=== PATIENT | female | born 1990 | race Caucasian/White ===

== ENCOUNTER 2016-03-18 12:46 | Emergency (ER) | payer OTHER ==
[2016-03-18 12:59] VITALS: BP 125/87
--- NOTE | 2016-03-18 13:06 | UC ---
Hand/Wrist HPI - HPI Summary HPI Summary: fell last night landing on left hand---pain in thumb bruising 1 and 5 MC - History Of Current Complaint Chief Complaint: UCUpperExtremity Stated Complaint: SORE HAND Time Seen by Provider: 03/18/16 13:05 Hx Obtained From: Patient Hx Last Menstrual Period: iud ?: No Mechanism Of Injury: Fall Onset/Duration: Sudden Onset, Lasting Days - 1, Still Present Severity Initially: Moderate Severity Currently: Moderate Pain Intensity: 7 Pain Scale Used: 0-10 Numeric Character Of Pain: Aching Aggravating Factor(s): Movement Alleviating: Nothing Associated Signs And Symptoms: Positive: Bruising Related History: Dominant Hand Right - Allergies/Home Medications Allergies/Adverse Reactions: Allergies Allergy/AdvReac Type Severity Reaction Status Date / Time Cyclobenzaprine Allergy Hives Verified 08/16/15 12:28 [From Flexeril] Ciprofloxacin AdvReac See Comment Verified 08/16/15 14:30 shrimp Allergy Vomiting Uncoded 03/18/16 12:55 PMH/Surg Hx/FS Hx/Imm Hx Previously Healthy: Yes Endocrine History Of: Denies: Hyperthyroidism, Hypothyroidism Cardiovascular History Of: Denies: Cardiac Disorders - Surgical History Surgical History: Yes Surgery Procedure, Year, and Place: LEFT FOOT 2 SCREWS BUNION SURGERY 2006. [facility] 06/25 - Family History Known Family History: Positive: None Family History: no known cardio vascular issues in family lineage - Social History Occupation: Employed Full-time - [employer] Lives: With Family Alcohol Use: Weekly Substance Use Type: Marijuana Smoking Status (MU): Current Every Day Smoker Amount Used/How Often: 1/2 PPD Have You Smoked in the Last Year: Yes Cessation Counseling: Counseled 3+Min - 10 Min Review of Systems Constitutional: Negative Skin: Bruising - left had---lateral and medial side Eyes: Negative ENT: Negative Respiratory: Negative Cardiovascular: Negative Gastrointestinal: Negative Genitourinary: Negative Motor: Negative Neurovascular: Negative Musculoskeletal: Arthralgia Neurological: Negative Psychological: Negative All Other Systems Reviewed And Are Negative: Yes Physical Exam Triage Information Reviewed: Yes Appearance: Well-Appearing, No Pain Distress, Well-Nourished Vital Signs: Initial Vital Signs Temp 98.3 F 03/18/16 12:55 Pulse 111 03/18/16 12:55 Resp 16 01/05/17 12:55 BP 125/87 03/18/16 12:55 Pulse Ox 100 03/18/16 12:55 Vital Signs Reviewed: Yes Eye Exam: Normal Eyes: Positive: Conjunctiva Clear ENT Exam: Normal ENT: Positive: Normal ENT inspection, Hearing grossly normal. Negative: Nasal congestion, Nasal drainage, Tonsillar exudate, Trismus, Muffled/hoarse voice Neck exam: Normal Neck: Positive: Supple, Nontender Respiratory Exam: Normal Respiratory: Positive: Chest non-tender, Lungs clear, Normal breath sounds, No respiratory distress, No accessory muscle use Cardiovascular Exam: Normal Cardiovascular: Positive: RRR, No Murmur, Pulses Normal, Brisk Capillary Refill Musculoskeletal Exam: Normal Musculoskeletal: Positive: Edema @ - medial and laterl left hand Neurological Exam: Normal Neurological: Positive: Alert, Muscle Tone Normal Psychological Exam: Normal Skin Exam: Normal Diagnostics - Laboratory Diagnostic Studies Completed/Ordered: x-ray negative Hand/Wrist Course/Dx - Course Course Of Treatment: дмитрий , rest, ice, follow with ortho prn - Differential Dx/Diagnosis Differential Diagnosis/HQI/PQRI: Contusion, Fracture, Sprain, Strain Provider Diagnoses: contusion left hand Discharge - Discharge Plan Condition: Stable Disposition: HOME Prescriptions: HYDROcodone/ACETAMIN 5-325 MG* [[place] 5-325 TAB*] 1 tab PO Q6H PRN #8 tab MDD 4 PRN Reason: Pain Patient Education Materials: Contusion in Adults (ED), RICE Therapy (ED) Referrals: No Primary Care Phys,NOPCP [Primary Care Provider] - Mary Bills MD [Medical Doctor] - 5 Days
[2016-03-18] MEDS ORDERED: Ibuprofen TAB* 600 MG PO ONE (13:09)
--- NOTE | 2016-03-18 13:34 | RAD ---
INDICATION: Left hand injury. TECHNIQUE: 4 views of the left hand were obtained. FINDINGS: The bones are in normal alignment. No fracture is seen. Joint spaces appear maintained. IMPRESSION: NO EVIDENCE FOR FRACTURE.
== END 2016-03-18 13:54 | disposition home or self-care (01) ==
LOC: UCEAST 12:46
DX: S60.222A Contusion of left hand, initial encounter (principal); W19.XXXA Unspecified fall, initial encounter; Y93.9 Activity, unspecified; Y92.9 Unspecified place or not applicable; Z88.1 Allergy status to other antibiotic agents; Z88.2 Allergy status to sulfonamides; F17.210 Nicotine dependence, cigarettes, uncomplicated
CPT/HCPCS: 99212; A9270-GY; G0463

== ENCOUNTER 2016-05-27 12:28 | Emergency (ER) | payer OTHER ==
[2016-05-27 12:47] VITALS: BP 120/85
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
== END 2016-05-27 14:14 | disposition home or self-care (01) ==
LOC: UCEAST 12:28
DX: S39.012A Strain of muscle, fascia and tendon of lower back, initial encounter (principal); X50.0XXA Overexertion from strenuous movement or load, initial encounter; X50.9XXA Other and unspecified overexertion or strenuous movements or postures, initial encounter; Y93.89 Activity, other specified; Y92.79 Other farm location as the place of occurrence of the external cause; Y99.0 Civilian activity done for income or pay; S09.90XA Unspecified injury of head, initial encounter; W55.22XA Struck by cow, initial encounter; Y93.9 Activity, unspecified; M25.472 Effusion, left ankle; Z32.02 Encounter for pregnancy test, result negative; Z88.1 Allergy status to other antibiotic agents; Z88.8 Allergy status to other drugs, medicaments and biological substances; F17.210 Nicotine dependence, cigarettes, uncomplicated
CPT/HCPCS: 81003; 84702; 99212; G0463

== ENCOUNTER 2016-11-22 16:02 | Emergency (ER) | payer OTHER ==
[2016-11-22 16:07] VITALS: BP 123/86
--- NOTE | 2016-11-22 16:33 | UC ---
Complaint Female HPI - HPI Summary HPI Summary: 26 YEAR OLD FEMALE PRESENTS WITH COMPLAINS OF PAINFUL AREA ON RIGHT LOWER BREAST. - History Of Current Complaint Chief Complaint: UCGeneralIllness Stated Complaint: PERSONAL Time Seen by Provider: 11/22/16 16:27 Hx Obtained From: Patient Hx Last Menstrual Period: one month ago Onset/Duration: Sudden Onset Timing: Constant Severity Initially: Moderate Severity Currently: Moderate Pain Scale Used: 0-10 Numeric - 7 Character: Sharp - Allergies/Home Medications Allergies/Adverse Reactions: Allergies Allergy/AdvReac Type Severity Reaction Status Date / Time Cyclobenzaprine Allergy Hives Verified 11/22/16 16:08 [From Flexeril] Ciprofloxacin AdvReac See Comment Verified 11/22/16 16:08 shrimp Allergy Vomiting Uncoded 11/22/16 16:08 Home Medications: Home Medications Ibuprofen TAB* [Motrin TAB* 600 MG] 1 cap PO ONCE 11/22/16 [History Confirmed ] PMH/Surg Hx/FS Hx/Imm Hx Previously Healthy: Yes - Surgical History Surgical History: Yes Surgery Procedure, Year, and Place: LEFT FOOT 2 SCREWS BUNION SURGERY 2006. [facility] 06/25 - Family History Known Family History: Positive: None, Cardiac Disease, Hypertension, Other - Yes - Stroke. Yes - Cancer Family History: no known cardio vascular issues in family lineage - Social History Alcohol Use: Occasionally Substance Use Type: Marijuana Smoking Status (MU): Current Every Day Smoker Amount Used/How Often: 1/2 PPD Have You Smoked in the Last Year: Yes Review of Systems Constitutional: Negative Skin: Other - PAINFUL LESION ON RIGHT LOWER BREAST Eyes: Negative ENT: Negative Respiratory: Negative Cardiovascular: Negative Gastrointestinal: Negative Genitourinary: Negative Motor: Negative Neurovascular: Negative Musculoskeletal: Negative Neurological: Negative Psychological: Negative All Other Systems Reviewed And Are Negative: Yes Physical Exam Triage Information Reviewed: Yes Appearance: Well-Appearing Vital Signs: Initial Vital Signs Temp 37.0 C 11/22/16 16:04 Pulse 56 11/22/16 16:04 Resp 12 11/22/16 16:04 BP 123/86 11/22/16 16:04 Pulse Ox 98 11/22/16 16:04 Eye Exam: Normal ENT Exam: Normal Dental Exam: Normal Neck exam: Normal Neck: Positive: 1 Respiratory Exam: Normal Cardiovascular Exam: Normal Abdominal Exam: Normal Musculoskeletal Exam: Normal Neurological Exam: Normal Psychological Exam: Normal Skin: Positive: Other - PAINFUL/RED LESION RIGHT LOWER BREAST Complaint Female Dx - Differential Dx/Diagnosis Provider Diagnoses: PAINFUL LESION RIGHT LOWER BREAST. MASTITIS Discharge - Discharge Plan Condition: Stable Disposition: HOME Prescriptions: Cephalexin CAP* [Keflex 500 CAP*] 500 mg PO TID #30 cap Ibuprofen TAB* [Motrin TAB* 800 MG] 800 mg PO Q8H PRN #30 tab PRN Reason: Pain Patient Education Materials: Mastitis (ED) Referrals: No Primary Care Phys,NOPCP [Primary Care Provider] - Additional Instructions: FOLLOW UP MAMMOGRAM
== END 2016-11-22 16:45 | disposition home or self-care (01) ==
LOC: UCEAST 16:02
DX: N61.0 Mastitis without abscess (principal); F17.210 Nicotine dependence, cigarettes, uncomplicated
CPT/HCPCS: 99212; G0463

== ENCOUNTER 2017-04-25 12:31 | Day surgery (SDC) | payer OTHER ==
[~2017-04-25 12:31] MED LIST: Acetaminophen TAB* 325 MG PO PRN; Buffered Lidocaine 0.9% SYRIN* 5 ML/SYR SYRINGE INTRADERM ONE; DiMENhydriNATE IV* 50 MG/ML VIAL IV PUSH PRN; Famotidine IV* 10 MG/ML 2 ML (20 mg) IV ONE; Ketorolac INJ* 30 MG/ML 1 ML VIAL ONE; Lidocaine 2% PF * 5 ML VIAL ONE; Midazolam* 1 MG/ML 2 ML VIAL (2 MG) ONE; Naloxone* 0.4 MG/ML 1 ML VIAL IV PRN; Ondansetron INJ* 2 MG/ML VIAL ONE; Propofol* 10 MG/ML 20 ML BTL IV PUSH ONE; fentaNYL* 50 MCG/ML 2 ML VIAL (100 MCG VIAL) ONE
[2017-04-25] MEDS ORDERED: Famotidine IV* 10 MG/ML 2 ML (20 mg) ONE (12:50)
[2017-04-25] MEDS ORDERED: Buffered Lidocaine 0.9% SYRIN* 5 ML/SYR SYRINGE ONE (12:51)
[2017-04-25] MEDS ORDERED: Bupivacaine 0.25% SDV* 30 ML ONE (13:02)
[2017-04-25] MEDS ORDERED: Midazolam* 1 MG/ML 2 ML VIAL (2 MG) ONE (13:20)
[2017-04-25] MEDS ORDERED: HYDROcodone/ACETAMIN 5-325 MG* 1 TAB ONE (14:53)
[2017-04-25 15:30] VITALS: BP 109/56
--- NOTE | 2017-04-30 14:09 | OP ---
DATE OF OPERATION: 04/25/17 - [facility] DATE OF : 89 SURGEON: Miguelangel Crow MD TECHNICAL TRAINING INSTRUCTOR: YANDY Mejia ANESTHESIOLOGIST: Sheri Ureña MD ANESTHESIA: Local MAC PRE-OP DIAGNOSES: 1. Right small trigger finger. 2. Right small finger flexor tenosynovitis. POST-OP DIAGNOSES: 1. Right small trigger finger. 2. Right small finger flexor tenosynovitis. OPERATIVE PROCEDURE: 1. Right small trigger finger release with release of A1 marilu. 2. Right small finger flexor tenosynovectomy in the hand and palm. INDICATIONS: Karly has been seen by me multiple times in the office. We have injected the finger. She continues to have symptoms. We talked about doing the tenosynovectomy, and trigger finger release. She wanted to proceed. ESTIMATED BLOOD LOSS: 2 mL COMPLICATIONS: None. FINDINGS: Extensor flexor tenosynovitis extending well into the palm requiring much larger incision. DESCRIPTION OF PROCEDURE: Karly was seen in the preoperative holding area. The correct side, site and procedure were identified. We came back to the operating room, and the arm was prepped and draped in the usual fashion. A time -out was performed. I began by making a Dax incision over the A1 marilu extending down to the mid palm. The dissection was carried down and full thickness flaps raised off the flexor tendon sheath. The A1 marilu was visualized. The tendon sheath was visualized. The digital nerves were protected. I made a longitudinal incision to the A1 marilu, this was released. There was a dense amount of flexor tenosynovitis surrounding the tendons. This was excised and started to taper off above the A2 marilu area. I came down to the mid palm and excised all of this. This was sent off as a specimen to the pathologist. She also had a little nodular tenosynovitis on the tendon sheath and I had excised this and sent this as a specimen as well. Once everything was nice and clean, she was waking up, had her flex and extend her fingers multiple times, things were looking good, so we irrigated out the wound. The skin was closed with 4-0 nylon suture. Wound was dressed with Xeroform, 4x4s, sterile Webril, and an Narayan wrap. She was taken to the recovery room in stable condition. [id number]/[facility] #: [id number] [facility]
== END 2017-04-25 15:15 | disposition home or self-care (01) ==
LOC: OR 12:31
PROVIDERS: ATTEND Orthopaedic Surgery Hand Surgery
DX: M65.351 Trigger finger, right little finger (principal); M65.841 Other synovitis and tenosynovitis, right hand; J45.909 Unspecified asthma, uncomplicated; F17.210 Nicotine dependence, cigarettes, uncomplicated
CPT/HCPCS: 81025; 88304; J1885; J2250; J2405; J2704; J3010

== ENCOUNTER 2018-08-10 06:54 | Day surgery (SDC) | payer OTHER ==
[~2018-08-10 06:54] MED LIST changes: -Acetaminophen TAB* 325 MG PO PRN; -Buffered Lidocaine 0.9% SYRIN* 5 ML/SYR SYRINGE INTRADERM ONE; +Buffered Lidocaine 1% SYRIN* 1 ML/SYRINGE INTRADERM ONE; +Dexamethasone IV* 4 MG/ML 1 ML (4 MG) IV SLOW PU ONE; -DiMENhydriNATE IV* 50 MG/ML VIAL IV PUSH PRN; -Famotidine IV* 10 MG/ML 2 ML (20 mg) IV ONE; -Ketorolac INJ* 30 MG/ML 1 ML VIAL ONE; +Lactated Ringers 1000 ML Bag* 1,000 ML IV SCH; -Lidocaine 2% PF * 5 ML VIAL ONE; -Midazolam* 1 MG/ML 2 ML VIAL (2 MG) ONE; -Naloxone* 0.4 MG/ML 1 ML VIAL IV PRN; -Ondansetron INJ* 2 MG/ML VIAL ONE; -Propofol* 10 MG/ML 20 ML BTL IV PUSH ONE; +Sodium Citrate/Citric Acid* 15 ML UDC PO ONE; -fentaNYL* 50 MCG/ML 2 ML VIAL (100 MCG VIAL) ONE
[2018-08-10] MEDS ORDERED: Sodium Citrate/Citric Acid* 15 ML UDC ONE (07:13)
[2018-08-10] MEDS ORDERED: Dexamethasone IV* 4 MG/ML 1 ML (4 MG) ONE (07:13)
[2018-08-10] MEDS ORDERED: Naloxone* 0.4 MG/ML 1 ML VIAL IV PRN (07:52)
[2018-08-10] MEDS ORDERED: DiMENhydriNATE IV* 50 MG/ML VIAL IV PUSH PRN (07:52)
[2018-08-10] MEDS ORDERED: fentaNYL* 50 MCG/ML 2 ML VIAL (100 MCG VIAL) IV PRN (07:52)
[2018-08-10] MEDS ORDERED: Buffered Lidocaine 1% SYRIN* 1 ML/SYRINGE INTRADERM ONE (07:57)
[2018-08-10] MEDS ORDERED: fentaNYL* 50 MCG/ML 2 ML VIAL (100 MCG VIAL) ONE (08:20)
[2018-08-10] MEDS ORDERED: Midazolam* 1 MG/ML 2 ML VIAL (2 MG) ONE (08:20)
[2018-08-10] MEDS ORDERED: Bupivacaine 0.25% SDV PF* 10 ML VIAL INJ ONE (08:28)
[2018-08-10] MEDS ORDERED: Propofol* 10 MG/ML 20 ML BTL ONE (09:08)
[2018-08-10] MEDS ORDERED: Lidocaine 2% PF * 5 ML VIAL ONE (09:08)
[2018-08-10 09:35] VITALS: BP 113/69
--- NOTE | 2018-08-10 09:49 | OP ---
OPERATIVE REPORT: DATE OF OPERATION: 08/10/18 - [facility] DATE OF : 89 SURGEON: Miguelangel Crow MD INTERNATIONAL PROJECT MANAGER: YANDY Mejia ANESTHESIOLOGIST: Dr. Mccarthy. ANESTHESIA: Local MAC. PRE-OP DIAGNOSES: 1. Left de Quervain's disease. 2. Left first dorsal compartment tendon sheath mass. POST-OP DIAGNOSES: 1. Left de Quervain's disease. 2. Left first dorsal compartment tendon sheath mass. PROCEDURE PERFORMED: 1. Excision of left first dorsal compartment tendon sheath mass. 2. Left de Quervain's release. INDICATIONS: Karly has the aforementioned conditions. We have done steroid injections, its come back. We talked about risks and benefits. She wanted to proceed. ESTIMATED BLOOD LOSS: 2 mL. COMPLICATIONS: None. FINDINGS: See above and below. DESCRIPTION OF PROCEDURE: Karly was seen in the preoperative holding area. The correct side, site, and procedure were identified. We came back to the operating room, the arm was prepped and draped in the usual fashion and timeout was performed. The arm was exsanguinated with the Esmarch and the tourniquet was inflated to 200 mmHg. I made a 1 to 2 cm transverse incision just proximal to the radial styloid. Dissection was carried down and full-thickness flaps were bluntly raised off of the first dorsal compartment tendon sheath. Vieira retractors were placed and the radial sensory nerve was retracted dorsally. The nodule that was coming off the tendon sheath was readily apparent. This was ellipsed out and excised and handed off as a specimen. After I had removed the nodule, I went ahead and took my 15 blade and released the first dorsal compartment tendon sheath off of the dorsal aspect. There was a septum and an accessory compartment. The septum was excised in its entirety. Once the tendons were completely released proximally and distally, we irrigated out the wound. The skin was closed with 4-0 Monocryl and the Steri- Strips. The wound was dressed with soft dressings and she was taken to the recovery room in stable condition. [id number]/[facility] #: [id number] [facility]
== END 2018-08-10 09:48 | disposition home or self-care (01) ==
LOC: OREAST 06:54 → MERGE 11:30
PROVIDERS: ATTEND Orthopaedic Surgery Hand Surgery
DX: M65.4 Radial styloid tenosynovitis [de Quervain] (principal); M67.432 Ganglion, left wrist; J45.909 Unspecified asthma, uncomplicated; Z72.0 Tobacco use; F41.8 Other specified anxiety disorders; M25.521 Pain in right elbow
CPT/HCPCS: 81025; 88304; A9270-GY; J1100; J2250; J2704; J3010; J3490

== ENCOUNTER 2018-09-02 03:46 | Emergency (ER) | payer SELFPAY ==
[2018-09-02 03:50] VITALS: BP 153/102
[2018-09-02] MEDS ORDERED: Bupivacaine 0.5% W/EPI SDV* 10 ML VIAL INJ ONE (04:03)
[2018-09-02] MEDS ORDERED: Lidocaine 2% EPI 1:200000 MPF* 10 ML VIAL INJ ONE (04:03)
[2018-09-02] MEDS ORDERED: Lidocaine 2% EPI 1:200000 MPF*10-20 ML VIAL ONE (04:06)
[2018-09-02] MEDS ORDERED: Bupivacaine 0.5% W/EPI SDV* 30 ML VIAL ONE (04:06)
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
[2018-09-02] MEDS ORDERED: Lidocaine 2% EPI 1:200000 MPF*10-20 ML VIAL INJ ONE (04:33)
[2018-09-02] MEDS ORDERED: Bupivacaine 0.5% W/EPI SDV* 30 ML VIAL INJ ONE (04:33)
--- OUTSIDE RECORDS SUMMARY | 2018-09-02 04:41 | XMS REPORT | Continuity of Care Document ---
:1990 External Reference #:[id number] Author Name Wai Amaral Care Team Providers Name Role Phone Maureen Cobos MD Primary Care Physician Unavailable Payers Date Identification Numbers Payment Provider Subscriber Expires: 2017 Policy Number: [id number] [employer] Karly Bellamy PayID: [id number] [address] [address] [place] [address] Effective: 2017 Policy Number: [id number] [employer] Karly Bellamy Expires: 2017 PayID: [id number] [address] [address] [place] [address] Expires: 2017 Policy Number: [id number] [employer] Karly Bellamy PayID: [id number] [address] [address] [place] [address] Problems Active Problems Provider Date Other specific joint derangements of left wrist, Miguelangel Crow MD Onset: not elsewhere classified Tenosynovitis of hand Miguelangel Crow MD Onset: 04/25/2017 Acquired trigger finger Miguelangel Crow MD Onset: 04/25/2017 Family History Date Family Member(s) Observation Comments General Heart Disease maternal & paternal grandfather General Stroke maternal grandmother General Cancer paternal & maternal aunt, maternal grandmother General Blood Disorder Clotting & legs amputated (paternal grandfather) Social History Type Date Description Comments Sex Unknown Lives With Mother And Father Occupation [employer] ETOH Use Occasionally consumes alcohol Tobacco Use Start: Unknown Patient is a current smoker, 2 pks/wk smokes every day Recreational Drug Use Denies Drug Use Smoking Status Reviewed: 08/25/18 Patient is a current smoker, 2 pks/wk smokes every day Exercise Type/Frequency Exercises sporadically Allergies, Adverse Reactions, Alerts Active Allergies Reaction Severity Comments Date Shellfish-derived Products just shrimp 03/30/2013 Flexeril hives 12/10/2016 Adhesive Tape rash 04/27/2017 Cipro Nausea and Vomiting 04/27/2017 Medications Active Medications SIG Qnty Indications Ordering Provider Date Tramadol HCL 1-2 tablets by 30tathelma rCow, 08/10/2018 50mg mouth every 6 MD Tablets hours as needed pain Ibuprofen every 6 hours as Unknown 600mg needed Xanax one by mouth up Unknown 0.25mg Tablets to three times daily as needed for anxiety Tylenol 2 tabs by mouth Unknown 325mg Tablets every 4 hours as needed History Medications Hydrocodone-Acetaminophen 1 or 2 tabs by 30tathelma Means 02/23/2018 - 5-325mg Tablets mouth every 6-8 MD Tristin 03/14/2018 hours as needed for pain [place] 1 by mouth every 15tabs Miguelangel 04/25/2017 - 5-325mg Tablets 4 to 6 hours as MD Tristin 05/02/2017 needed (please discontinue tramadol) Tramadol HCL 1-2 tablets by 30aisha Means 04/24/2017 - 50mg Tablets mouth every 6 MD Tristin 04/25/2017 hours as needed pain Hydrocodone-Acetaminophen Unknown - 12/09/2016 Azithromycin 2 tabs by mouth Unknown - 250mg Tablets on day 1; 1 tab 03/14/2018 by mouth every day on days 2-5 Medications Administered in Office Medication SIG Qnty Indications Ordering Provider Date Celestone 3 mg and 3mg Miguelangel Crow MD 07/11/2018 Injection Celestone 3 mg and 3mg Miguelangel Crow MD 03/24/2018 Injection Celestone 3 mg and 3mg Miguelangel Crow MD 10/19/2017 Injection Celestone 3 mg and 3mg Miguelangel Crow MD 08/05/2017 Injection Celestone 3 mg and 3mg Mgiuelangel Crow MD 06/03/2017 Injection Celestone 3 mg and 3mg Miguelangel Crow MD 02/18/2017 Injection Celestone 3 mg and 3mg Miguelangel Crow MD 12/10/2016 Injection Vital Signs Date Vital Result Comment 08/25/2018 2:51pm Height 66 inches 5'6" Weight 180.00 lb Heart Rate 80 /min BP Systolic Sitting 124 mmHg BP Diastolic Sitting 82 mmHg Body Temperature 98.4 F Pain Level 1 cramping BMI (Body Mass Index) 29.0 kg/m2 07/11/2018 10:18am Height 66 inches 5'6" BP Systolic 128 mmHg BP Diastolic 80 mmHg Respiratory Rate 15 /min Body Temperature 97.7 F Pain Level 4 05/09/2018 1:55pm Height 66 inches 5'6" Heart Rate 109 /min BP Systolic 112 mmHg BP Diastolic 80 mmHg Respiratory Rate 18 /min Body Temperature 98.0 F Pain Level 3 04/07/2018 1:45pm Height 66 inches 5'6" Weight 180.00 lb BP Systolic Sitting 112 mmHg BP Diastolic Sitting 70 mmHg Respiratory Rate 12 /min Pain Level 3 BMI (Body Mass Index) 29.0 kg/m2 03/24/2018 3:45pm Height 66 inches 5'6" Weight 175.00 lb BP Systolic Sitting 126 mmHg BP Diastolic Sitting 82 mmHg Respiratory Rate 16 /min Pain Level 10 BMI (Body Mass Index) 28.2 kg/m2 03/15/2018 10:21am Height 66 inches 5'6" Weight 175.00 lb BP Systolic 115 mmHg BP Diastolic 68 mmHg Respiratory Rate 17 /min Pain Level 7 BMI (Body Mass Index) 28.2 kg/m2 03/01/2018 11:35am Height 66 inches 5'6" Heart Rate 100 /min BP Systolic 118 mmHg BP Diastolic 78 mmHg Body Temperature 98.6 F Pain Level 6 02/01/2018 9:44am Height 66 inches 5'6" Weight 182.75 lb Heart Rate 100 /min BP Systolic Sitting 110 mmHg BP Diastolic Sitting 70 mmHg Body Temperature 98.6 F Pain Level 5 O2 % BldC Oximetry 98 % BMI (Body Mass Index) 29.5 kg/m2 01/04/2018 11:03am Height 66 inches 5'6" Weight 172.00 lb Heart Rate 89 /min BP Systolic 132 mmHg BP Diastolic 84 mmHg Body Temperature 97.4 F BMI (Body Mass Index) 27.8 kg/m2 12/13/2017 9:48am Height 66 inches 5'6" Heart Rate 78 /min Respiratory Rate 18 /min Pain Level 4 11/29/2017 11:42am Height 66 inches 5'6" Heart Rate 96 /min Respiratory Rate 15 /min Body Temperature 98.0 F Pain Level 5 10/19/2017 11:51am Height 66 inches 5'6" Weight 165.00 lb Heart Rate 73 /min BP Systolic 126 mmHg BP Diastolic 75 mmHg Body Temperature 97.0 F BMI (Body Mass Index) 26.6 kg/m2 09/16/2017 11:44am Height 66 inches 5'6" BP Systolic 118 mmHg BP Diastolic 68 mmHg Respiratory Rate 16 /min Pain Level 5 08/05/2017 11:28am Height 66 inches 5'6" Weight 165.00 lb Heart Rate 80 /min Respiratory Rate 16 /min Body Temperature 97.4 F Pain Level 6 BMI (Body Mass Index) 26.6 kg/m2 07/06/2017 12:01pm Height 66 inches 5'6" Heart Rate 103 /min BP Systolic 122 mmHg BP Diastolic 63 mmHg Respiratory Rate 16 /min Pain Level 3 06/03/2017 11:18am Height 66 inches 5'6" Heart Rate 98 /min BP Systolic 128 mmHg BP Diastolic 70 mmHg Respiratory Rate 16 /min Body Temperature 98.5 F Pain Level 2 05/09/2017 11:17am Height 66 inches 5'6" Weight 164.00 lb Heart Rate 120 /min BP Systolic Sitting 116 mmHg BP Diastolic Sitting 64 mmHg Respiratory Rate 18 /min Pain Level 5 bilateral breasts BMI (Body Mass Index) 26.5 kg/m2 05/03/2017 11:18am Height 66 inches 5'6" Weight 164.00 lb BP Systolic 120 mmHg BP Diastolic 72 mmHg Respiratory Rate 16 /min Body Temperature 97.7 F Pain Level 6 BMI (Body Mass Index) 26.5 kg/m2 04/27/2017 9:52am Height 66 inches 5'6" Weight 164.00 lb Heart Rate 116 /min BP Systolic Sitting 118 mmHg BP Diastolic Sitting 80 mmHg Respiratory Rate 18 /min Body Temperature 97.9 F BMI (Body Mass Index) 26.5 kg/m2 04/01/2017 2:29pm Height 65 inches 5'5" Heart Rate 70 /min Respiratory Rate 20 /min Body Temperature 98.8 F Pain Level 4 02/18/2017 9:08am Height 65 inches 5'5" Weight 153.00 lb Heart Rate 72 /min Respiratory Rate 14 /min Body Temperature 98.3 F Pain Level 8 BMI (Body Mass Index) 25.5 kg/m2 12/10/2016 1:59pm Height 65 inches 5'5" Weight 153.00 lb Heart Rate 68 /min Respiratory Rate 16 /min Body Temperature 98.1 F BMI (Body Mass Index) 25.5 kg/m2 03/26/2016 2:24pm Height 66 inches 5'6" Weight 150.00 lb Respiratory Rate 16 /min Pain Level 4 BMI (Body Mass Index) 24.2 kg/m2 06/19/2013 1:46pm Height 66 inches 5'6" Weight 150.00 lb Heart Rate 87 /min BP Systolic 117 mmHg BP Diastolic 73 mmHg BMI (Body Mass Index) 24.2 kg/m2 05/17/2013 3:00pm Height 66 inches 5'6" Weight 150.00 lb Heart Rate 105 /min BP Systolic 131 mmHg BP Diastolic 92 mmHg BMI (Body Mass Index) 24.2 kg/m2 04/18/2013 1:52pm Height 66 inches 5'6" Weight 145.00 lb Heart Rate 80 /min BMI (Body Mass Index) 23.4 kg/m2 03/30/2013 2:13pm Height 66 inches 5'6" Weight 145.00 lb Heart Rate 88 /min BP Systolic 120 mmHg BP Diastolic 73 mmHg BMI (Body Mass Index) 23.4 kg/m2 Results Test Date Facility Test Result H/L Range Note Laboratory test [facility] Surgical SEE RESULT 1 , 2 finding [address] [place] [address] [phone] Laboratory test [facility] SEE RESULT 3 , 4 finding [address] [place] [address] [phone] Laboratory test [facility] SEE RESULT 5 finding [address] [place] [address] [phone] Laboratory test [facility] D Dimer 340 ng/mL High Less Than 6 finding [address] Quantitative [address] [place] [address] [phone] 1 [id number] 2 SEE RESULT BELOW Name: KARLY BELLAMY : [address]: Miguelangel Crow MD Acct: [id number] Unit: [id number] AGE: 28 Location: [facility] Re08/10/18 SEX: F Status: DEP SDC SPEC: [id number] TEDDY: 08/10/18-0856 [facility] DR: Miguelangel Crow MD REQ: [id number] RECD: 08/10/18 STATUS: SOUT _ ORDERED: LEVEL 3 COMMENTS: [id number] FINAL DIAGNOSIS First dorsal compartment sheath left wrist, excision: -- Ganglion cyst. PRE-OPERATIVE DIAGNOSIS Left wrist deQuervain???s tenosynovitis and mass first dorsal compartment sheath GROSS DESCRIPTION The specimen is received in formalin labeled, Mass First Dorsal Compartment Sheath Left Wrist, and consists of a 0.4 x 0.3 x 0.2 cm painting white ovoid rubbery fibrous tissue fragment which is submitted entirely in one cassette. Signed by and Reported on: Aminah Britt MD 08/11/18 1617 END OF REPORT DEPARTMENT OF PATHOLOGY, [address] [place] [address] Tommy Khan M.D. Director [facility] # [id number] 3 [id number] 4 SEE RESULT BELOW Name: KARLY BELLAMY : [address]: Miguelangel Crow MD Acct: [id number] Unit: [id number] AGE: 28 Location: [facility] Re02/23/18 SEX: F Status: GENA GALVAN SPEC: [id number] TEDDY: 02/23/18-160 [facility] DR: Miguelangel Crow MD REQ: [id number] RECD: 02/24/18 STATUS: SHARAN _ HORACE: Thanh, LEVEL 3 COMMENTS: [id number] FINAL DIAGNOSIS Pisiform, left wrist, excision: -- Benign bone and cartilage with degenerative change. PRE-OPERATIVE DIAGNOSIS Left wrist pain, ulnar sided. GROSS DESCRIPTION The specimen is received in formalin labeled, Left Wrist Pisiform, and consists of two polk-white irregular focally nodular bone fragments aggregating 1.7 x 1.4 x 0.8 cm. Maintenance Machine Repairer sections, one cassette following decalcification. Signed by and Reported on: Aminah Britt MD 02/28/18 1605 END OF REPORT DEPARTMENT OF PATHOLOGY, [address] [place] [address] Tommy Khan M.D. Director [facility] # [id number] 5 SEE RESULT BELOW Name: KARLY BURTON : [address]: Miguelangel Crow MD Acct: [id number] Unit: [id number] AGE: 27 Location: OR Re04/25/17 SEX: F Status: GENA GALVAN SPEC: [id number] TEDDY: 04/25/17-9095 [facility] DR: Miguelangel Crow MD REQ: [id number] RECD: 04/25/17 STATUS: SOUT _ ORDERED: LEVEL 3/2 FINAL DIAGNOSIS 1. Right small finger tendon sheath mass, excision: -- Nodular tenosynovitis. 2. Right small finger flexor tenosynovium, resection: -- Hyperplastic synovial tissue with neovascularization, fibrosis and extensive myxoid degeneration. Focal chondroid metaplasia noted. PRE-OPERATIVE DIAGNOSIS Trigger finger right little finger GROSS DESCRIPTION 1. The specimen is received in formalin labeled, Right Small Finger Tendon Sheath Mass, and consists of a 0.4 x 0.3 x 0.2 cm polk-white irregular rubbery fibrous tissue fragment which is submitted entirely in one cassette. 2. The specimen is received in formalin labeled, Right Small Finger Flexor Tenosynovitis, and consists of two polk-white irregular rubbery fibrous tissue fragments aggregating 1.5 x 1.1 x 0.3 cm which are submitted entirely in one cassette. Signed (signature on file) Tommy Khan MD 1119 END OF REPORT * ML=Testing performed at Main Lab DEPARTMENT OF PATHOLOGY, [address] [place] [address] Tommy Khan M.D. Director [facility] # [id number] [address] DAVIS by [id number] at 1237 on 11/09/12. Results read back accurately. Please note: The following may produce a false positive D Dimer test: - Rheumatoid factor greater than 60 IU/ml - Plasma hemoglobin greater than 0.05 gm/dl - Bilirubin greater than 50 mg/dl - Lipids greater than 1000 mg/dl - FDP greater than 20 ug/ml Procedures Date Code Description Status 08/10/2018 55678 Excision Tendon Sheath Ganglion /Or Joint Capsule Hand Or Completed Finger 08/10/2018 74652 Excision Tendon Sheath Ganglion /Or Joint Capsule Hand Or Completed Finger 08/10/2018 24930 Dequervains-Tendon Sheath Incision/Extensor Sheath,Wrist Completed 08/10/2018 34565 Dequervains-Tendon Sheath Incision/Extensor Sheath,Wrist Completed 07/11/2018 86700 Inject/Drain Joint/Bursa Intermediate W/O US Completed 04/07/2018 78588 Long Arm Splint Application Completed 03/24/2018 93261 Long Arm Cast Application Completed 03/24/2018 29136 Inject Tendon Sheath Or Ligament Aponeurosis Eg Plantar Completed Fascia 03/15/2018 70577 Long Arm Splint Application Completed 03/01/2018 17226 Long Arm Cast Application Completed 02/23/2018 17572 Arthrotomy Distal Radioulnar JT W/Repair Triangular Completed Cartilage 02/23/2018 66563 Arthrotomy Distal Radioulnar JT W/Repair Triangular Completed Cartilage 02/23/2018 04947 Carpectomy One Bone Completed 02/23/2018 31719 Arthroscopy Wrist Excision/Repair Triang Completed Fibrocartilage/Debride 10/19/2017 94444 Inject/Drain Joint/Bursa Intermediate W/O US Completed 08/05/2017 14617 Inject/Drain Joint/Bursa Intermediate W/O US Completed 06/03/2017 64470 Inject Tendon Sheath Or Ligament Aponeurosis Eg Plantar Completed Fascia 04/25/2017 23543 Synovectomy Tendon Sheath Radical Flexor Palm/Finger Completed 04/25/2017 68975 Synovectomy Tendon Sheath Radical Flexor Palm/Finger Completed 02/18/2017 94966 Inject Tendon Sheath Or Ligament Aponeurosis Eg Plantar Completed Fascia 12/10/2016 00622 Inject Tendon Sheath Or Ligament Aponeurosis Eg Plantar Completed Fascia Encounters Type Date Location Provider Dx Diagnosis Office Visit 07/11/2018 Orthopedic Miguelangel Crow, M65.4 Radial styloid 10:00a [facility] tenosynovitis [de Quervain] M24.832 Oth specific joint derangements of left wrist, NEC M25.521 Pain in right elbow Office Visit 01/19/2018 10:00a [facility] D[facility]ology Libby Quinonezs, B36.0 Pityriasis MD hebert D22.5 Melanocytic nevi of trunk 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 left wrist, NEC Office Visit 11/29/2017 11:00a Orthopedic Miguelangel M24.832 Oth specific joint Services Of MD [place] derangements of C.M.A. left wrist, NEC Office Visit 10/19/2017 11:00a Orthopedic Miguelangel M24.832 Oth specific joint Services Of MD [place] derangements of C.M.A. left wrist, NEC Office Visit 09/16/2017 11:00a Barbara Means M24.832 Oth specific joint Services Of MD [place] derangements of C.M.A. left wrist, NEC M65.4 Radial styloid tenosynovitis [de Quervain] Office Visit 08/05/2017 Orthopedic Miguelangel M24.832 Oth specific joint 11:15a Services Of MD [place] derangements of C.M.A. left wrist, NEC Office Visit 07/06/2017 Orthopedic Miguelangel M65.4 Radial styloid 11:30a Services Of MD [place] tenosynovitis [de C.M.A. Quervain] M65.842 Other synovitis and tenosynovitis, left hand R22.31 Localized swelling, mass and lump, right upper limb M65.351 Trigger finger, right little finger Office Visit 05/09/2017 11:15a Surgical Estela Fred N64.59 Other signs and Associates Of Kiesha Flores MD symptoms in AT [place] breast Office Visit 04/27/2017 10:00a Surgical Estela Fred N64.59 Other signs and Associates Of Kiesha Flores MD symptoms in breast Office Visit 04/01/2017 2:00p Orthopedic Miguelangel M65.351 Trigger finger, Services Of MD [place] right little C.M.A. finger Office Visit 12/10/2016 1:30p Orthopedic Miguelangel M65.351 Trigger finger, Services Of MD [place] right little C.M.A. finger Office Visit 03/26/2016 2:00p Orthopedic Miguelangel S60.222A Contusion of Services Of MD [place] left hand, C.M.A. initial encounter Office Visit 06/19/2013 1:30p Orthopedic Miguelangel 845.00 Sprains & Services Of My Ortega Strains Ankle C.M.A. Unspec Site Office Visit 05/17/2013 1:00p Orthopedic Farzana Rodríguez 845.00 Sprains & Services Of RPA-C Strains Ankle C.M.A. Unspec Site Office Visit 04/18/2013 1:30p Orthopedic Miguelangel 845.00 Sprains & Services Of My Ortega Strains Ankle C.M.A. Unspec Site Office Visit 03/30/2013 1:15p Orthopedic Miguelangel 845.00 Sprains & Services Of My [place]tega Strains Ankle C.M.A. Unspec Site Office Visit 02/16/2013 2:00p Barbara Means 845.00 Sprains & Services Of My [place]tega Strains Ankle C.M.A. Unspec Site Office Visit 01/22/2013 1:45p Orthopedic Miguelangel 845.00 Sprains & Services Of My [place]tega Strains Ankle C.M.A. Unspec Site Office Visit 12/25/2012 1:45p Orthopedic Miguelangel 845.00 Sprains & Services Of My Ortega Strains Ankle C.M.A. Unspec Site Office Visit 12/08/2012 9:00a Orthopedic Miguelangel 845.00 Sprains & Services Of My Ortega Strains Ankle C.M.A. Unspec Site Plan of Treatment 07/11/2018 - Miguelangel Crow, MDM65.4 Radial styloid tenosynovitis [de Quervain] Follow up:Follow up: 10-14 days foedeoY69.832 Other specific joint derangements of left wrist, not fltjhzgF55.521 Pain in right elbowFollow up: Follow up:
== END 2018-09-02 04:38 | disposition home or self-care (01) ==
LOC: ED 03:46
DX: S01.91XA Laceration without foreign body of unspecified part of head, initial encounter (principal); W22.8XXA Striking against or struck by other objects, initial encounter; Y92.9 Unspecified place or not applicable; F17.210 Nicotine dependence, cigarettes, uncomplicated
CPT/HCPCS: 12011; 96374; 96375; 99282

== ENCOUNTER 2019-05-01 09:33 | Day surgery (SDC) | payer BC ==
--- NOTE | 2019-04-26 16:04 | HP ---
PREOPERATIVE HISTORY AND PHYSICAL: DATE OF ADMISSION/SURGERY: 05/01/19 DATE OF OFFICE VISIT/ENCOUNTER: 04/25/19 ATTENDING SURGEON: Mary Nicole MD * (DICTATED BY YANDY MIKE) PROCEDURE: Trigger release, right long finger. HISTORY OF PRESENT ILLNESS: This is a 29-year-old female who complains of pain in her right middle finger over the past month or so. She has history of a trigger finger release of the small finger on the same hand from which she did very well. She does not recall any specific injury, but she has significant trouble trying to do anything that requires gripping. 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 She denies any associated numbness or tingling. She is also an avid snowmobiler and is having trouble gripping the handlebars. She is interested in pursuing a trigger release for the finger. PAST MEDICAL HISTORY: 1. Asthma. 2. Depression/anxiety. PAST SURGICAL HISTORY: 1. Left wrist de Quervain's release. 2. Left hand ligament repair. 3. Right pinky trigger finger release. 4. Left foot bunionectomy. 5. [place] teeth extraction. CURRENT MEDICATIONS: 1. Claritin 10 mg daily. 2. Ibuprofen 600 mg q.6 hours p.r.n. 3. Women's Multivitamin 1 daily. 4. QVAR RediHaler. 5. Tylenol 325 mg 2 tabs q.4 hours p.r.n. 6. Ventolin HFA inhaler 1 to 2 inhalations every 4 hours p.r.n. 7. Xanax 0.25 up to 3 times daily p.r.n. anxiety. ALLERGIES: CIPROFLOXACIN causes nausea and vomiting, FLEXERIL causes hives. Also, allergic to ADHESIVE TAPE and SHELLFISH-DERIVED PRODUCTS. FAMILY MEDICAL HISTORY: Diabetes, heart disease, hypertension, stroke, history of DVT. SOCIAL HISTORY: The patient is a franz. She is a current smoker, less than a pack per day for the past 8 years. She smokes marijuana on occasion and drinks alcohol on regular occasion, usually 2 drinks per night. REVIEW OF SYSTEMS: Positive for congestion and some right shoulder pain. Otherwise, negative for general, cephalic, cardiovascular, respiratory, GI, , other musculoskeletal, integumentary, endocrine, neurologic, and hematologic symptoms. Infectious Disease: Negative for MRSA, hepatitis C, HIV. PHYSICAL EXAMINATION GENERAL: A well-developed, well-nourished 29-year-old female, in no acute distress. VITAL SIGNS: Height 5 feet 6 inches, weight 174 pounds. Pulse rate 108, blood pressure 142/78. HEENT: Normocephalic, atraumatic. Pupils are equal, round, and reactive to light and accommodation. Extraocular movements are intact. Throat is clear. NECK: Supple. No palpable lymph nodes. PULMONARY: Lungs are clear to auscultation bilaterally. No wheezes, rales, or rhonchi. CARDIOVASCULAR: Regular rate and rhythm. S1, S2. No murmurs, rubs, or gallops. No edema. ABDOMEN: Positive bowel sounds. Soft, nontender. NEUROLOGICAL: Alert and oriented x3. Cranial nerves II through XII are intact. Sensation is intact to light touch. MUSCULOSKELETAL: On exam of the right hand, there is tenderness to palpation at the A1 marilu of the middle finger. There is also some crepitus felt with flexion of the finger. She can make a fist and extend her finger well. Neurovascular function is intact. IMPRESSION: Right middle finger trigger finger. PLAN: The patient is scheduled to undergo a right trigger release, right long finger, with Dr. Nicole on 05/01/19. She will return to the office 10 days postop for followup and suture removal. A prescription for [place] was e-scribed to the patient's pharmacy for postoperative pain management. YANDY MIKE [id number]/[facility] #: [id number] EMETERIO
[~2019-05-01 09:33] MED LIST changes: +Acetaminophen TAB* 325 MG ONE; +Acetaminophen TAB* 325 MG PO ONE; -Dexamethasone IV* 4 MG/ML 1 ML (4 MG) IV SLOW PU ONE; -Sodium Citrate/Citric Acid* 15 ML UDC PO ONE
[2019-05-01] MEDS ORDERED: Midazolam* 1 MG/ML 5 ML VIAL (5 MG) ONE (11:01)
[2019-05-01] MEDS ORDERED: Lidocaine 1% INJ* 10 MG/ML 30 ML SDV ONE (11:21)
[2019-05-01] MEDS ORDERED: Propofol* 10 MG/ML 20 ML BTL ONE (11:39)
[2019-05-01] MEDS ORDERED: Lidocaine 2% PF * 5 ML VIAL ONE (11:39)
[2019-05-01] MEDS ORDERED: Ondansetron INJ* 2 MG/ML VIAL ONE (11:39)
[2019-05-01] MEDS ORDERED: Ketorolac INJ* 30 MG/ML 1 ML VIAL ONE (11:39)
[2019-05-01 12:17] VITALS: BP 105/73
--- NOTE | 2019-05-01 23:47 | OP ---
DATE OF OPERATION: 05/01/19 [facility] DATE OF : [birth year] SURGEON: Mary Nicole MD SKEINER: YANDY Girffin ANESTHESIA: Local MAC. PRE-OP DIAGNOSIS: Right long finger trigger finger. POST-OP DIAGNOSIS: Right long finger trigger finger. OPERATIVE PROCEDURE: Right long finger trigger release. ESTIMATED BLOOD LOSS: Zero. TOURNIQUET TIME: About 10 minutes. INDICATION FOR PROCEDURE: Karly is a 29-year-old female who has triggering and locking of her right long finger. She presents for trigger finger release. DESCRIPTION OF PROCEDURE: The patient was brought to the operating room and was given a sedation anesthetic and a local infiltration of 10 cc of 1% plain lidocaine in the palm of her right hand. The skin of her right hand and fore- arm was prepped and draped in the usual sterile fashion. The hand and forearm were exsanguinated and the tourniquet elevated to 250 mmHg. A transverse incision was made centered over the A1 marilu of the right middle finger. We dissected through the subcutaneous tissue bluntly down to the A1 marilu. The digital neurovascular bundles were retracted by the surgical elastic knitter hand frame, Gabbie Barriga. The A1 marilu was incised longitudinally completely releasing the flexor tendon, which had a mild amount of tenosynovitis surrounding them. This was debrided. The wound was irrigated and the skin edges reapproximated with 4- 0 nylon suture. The wound was dressed with Xeroform, 4x4, Webril and an Narayan wrap. The patient tolerated the procedure well and was brought to the recovery room in good condition. [id number]/[facility] #: [id number] [facility]ENTERJennifer
== END 2019-05-01 12:32 | disposition home or self-care (01) ==
LOC: OREAST 09:33
PROVIDERS: ATTEND Orthopaedic Surgery
DX: M65.331 Trigger finger, right middle finger (principal); J45.909 Unspecified asthma, uncomplicated; F41.8 Other specified anxiety disorders; F17.210 Nicotine dependence, cigarettes, uncomplicated; Z79.51 Long term (current) use of inhaled steroids; Z88.1 Allergy status to other antibiotic agents; Z91.013 Allergy to seafood; Z88.8 Allergy status to other drugs, medicaments and biological substances; Z91.048 Other nonmedicinal substance allergy status
CPT/HCPCS: 81025; A9270-GY; J1885; J2250; J2405; J2704

== ENCOUNTER 2020-11-14 06:09 | Inpatient (IN) ==
[2020-11-14] MEDS ORDERED: ceFOXitin 2 GM PREMIX 50 ML IVPB ONE (07:00)
[2020-11-14] MEDS ORDERED: Sodium Citrate/Citric Acid LIQ 15 ML UDC ONE (07:10)
[2020-11-14] MEDS ORDERED: Buffered Lidocaine 1% SYRIN 1 ml INTRADERM ONE (07:33)
[2020-11-14] MEDS ORDERED: Lactated Ringers 1000 ml BAG 1,000 ML IV ONE (07:33)
[2020-11-14] MEDS ORDERED: Morphine PF AMP (0.5MG/ML) 5 MG/10 ML AMP ONE (07:51)
[2020-11-14] MEDS ORDERED: Oxytocin 10 UNITS/ML 1 ML VIAL ONE (07:51)
[2020-11-14] MEDS ORDERED: Lactated Ringers 1000 ml BAG 1,000 ML IV SCH ×2 (08:00→10:00)
[2020-11-14] MEDS ORDERED: Phenylephrine 40 mcg/mL 10mL (400mcg) SYRINGE ONE (08:22)
[2020-11-14] MEDS ORDERED: diPHENhydraMINE IV 50 MG/ML 1 ml VIAL (BENADRYL) ONE (08:41)
[2020-11-14] MEDS ORDERED: Morphine 4 MG/ML VIAL (1 ml) IV PRN (08:54)
[2020-11-14] MEDS ORDERED: Naloxone 0.4 mg VIAL 0.4 mg/ml 1 ml VIAL IV PRN ×2 (08:54→08:55)
[2020-11-14] MEDS ORDERED: diPHENhydraMINE IV 50 MG/ML 1 ml VIAL (BENADRYL) IV PRN (08:55)
[2020-11-14] MEDS ORDERED: Ondansetron 4 mg VIAL 2 MG/ML 2 ml VIAL IV PRN (08:55)
[2020-11-14] MEDS ORDERED: DiMENhydriNATE IV 50 mg/ml 1 ml VIAL IV PUSH PRN (08:55)
[2020-11-14] MEDS ORDERED: Scopolamine PATCH Remove NOTE PATCH OFF PRN (08:55)
[2020-11-14] MEDS ORDERED: Dexamethasone IV 4 MG/ML VIAL 1 ml VIAL ONE (09:01)
[2020-11-14] MEDS ORDERED: Glycerin ADULT 2.4 gm SUPP PR PRN (09:27)
[2020-11-14] MEDS ORDERED: Witch Hazel PAD JAR TOPICAL PRN (09:27)
[2020-11-14] MEDS ORDERED: Dibucaine 1% OINT 28.35 GM TUBE PR PRN (09:27)
[2020-11-14] MEDS ORDERED: Morphine 10 MG/ML VIAL (1 ml) ONE (09:44)
[2020-11-14] MEDS ORDERED: Oxytocin in LR 20 UNITS/1,000 ML BAG IVPB SCH (10:00)
[2020-11-14] MEDS: HYDROcodone/ACETAMIN 5/325 mg TAB PO PRN ×2 (10:01→20:10)
[2020-11-14] MEDS: Nicotine PATCH 14 MG/24 HR PATCH TRANSDERM SCH (12:20)
[2020-11-14 12:52] LABS: Urine Appearance Clear; Urine Bilirubin Negative (Negative); Urine Blood Negative (Negative); Urine Color Straw; Urine Glucose Negative (Negative); Urine Ketones Negative (Negative); Urine Nitrite Negative (Negative); Urine Protein Negative (Negative); Urine Specific Gravity 1.008 (1.002-1.030); Urine Urobilinogen Negative (Negative)
[2020-11-14 12:56] LABS: Urine Benzodiazepine Screen None Detected (None Detect); Urine Cannabinoids Screen Presumptive Positive (None Detect); Urine Opiates Screen None Detected (None Detect)
[2020-11-15 06:44] LABS: ABS Basophils 0.1 10^3/ul (0-0.2); ABS Eosinophils 0.1 10^3/ul (0-0.6); ABS Lymphocytes 3.7 10^3/ul (1.0-4.8); ABS Monocytes 1.3 10^3/ul (0-0.8); ABS Neutrophils 15.3 10^3/ul (1.5-7.7); Eosinophil % 0.7 %; Hematocrit 31 % (35-47); Hemoglobin 10.6 g/dL (12.0-16.0); Lymphocyte % 17.9 %; Mean Corpuscular HGB Conc 35 g/dL (31-36); Mean Corpuscular Hemoglobin 30 pg (27-31); Mean Corpuscular Volume 85 fL (80-97); Mean Platelet Volume 8.4 fL (7.4-10.4); Platelet Count 266 10^3/uL (150-450); Red Blood Count 3.58 10^6 /uL (3.70-4.87); Red Cell Distribution Width 14 % (10-15); White Blood Count 20.5 10^3/uL (3.5-10.8)
[2020-11-15] MEDS: Nicotine PATCH 14 MG/24 HR PATCH TRANSDERM SCH (09:24)
[2020-11-16] MEDS: Nicotine PATCH 14 MG/24 HR PATCH TRANSDERM SCH (21:25)
[2020-11-17 08:22] VITALS: BP 99/60
[2020-11-17] MEDS: Nicotine PATCH 14 MG/24 HR PATCH TRANSDERM SCH (09:00)
== END 2020-11-17 13:05 | disposition home or self-care (01) | DRG 540 ==
LOC: MCHOB 06:09
PROVIDERS: ADMIT Obstetrics & Gynecology; ATTEND Obstetrics & Gynecology